=== PATIENT | female | born 2000 | race Caucasian/White ===

== ENCOUNTER 2023-04-21 09:17 | Emergency (ER) | payer MEDICAID, SELFPAY ==
[2023-04-21 09:19] VITALS: BP 100/71; PULSE 89; RESP 16; TEMP 36.7; O2SAT 100; BMI 18.2
--- NOTE | 2023-04-21 09:46 | W.ED.DENTAL ---
HPI - Dental/Oral General: Chief complaint: Dental/Oral Stated complaint: left side tooth pain Time Seen by Provider: 04/21/23 09:19 Source: patient Mode of arrival: ambulatory Limitations: no limitations History of Present Illness: 22-year-old female states she has been having left lower dental pain over the last 3 to 4 days. States pain sharp in nature rates it a 4 out of 10 she denies any Diffley swallowing denies any fever denies any trismus she has not seen a dentist. Associated symptoms: Denies fever(s) Review of Systems Const: Denies: fever(s), chills, body aches or change in appetite ENMT: Reports: mouth pain; Denies: throat pain or dental pain Card: Denies: chest pain Resp: Denies: dyspnea GI: Denies: abdominal pain, nausea, vomiting or diarrhea : Denies: dysuria Musc: Denies: neck pain or back pain Skin/Breast: Denies: rash Neuro: Denies: headache(s) Psych: Denies: depression Physical Exam Const: COMMON NORMALS: no acute distress, patient oriented x3 and healthy appearing HENMT: COMMON NORMALS: normocephalic and atraumatic HEAD & SCALP: normocephalic and atraumatic OTHER: Tenderness to left lower molar her wisdom tooth is also coming and partially erupted no abscess no trismus Eye: COMMON NORMALS: conjunctivae normal CONJUNCTIVA: Yes conjunctivae normal Neck/C-Spine: COMMON NORMALS: full ROM and supple Chest: COMMONS NORMALS: normal inspection of the chest Resp: COMMON NORMALS: normal respiratory effort GI: INSPECTION: Yes normal to inspection Extremity: COMMON NORMALS: normal to inspection and full ROM Neuro: COMMON NORMALS: patient oriented x3, moves all extremities and no focal motor deficits Psych: COMMON NORMALS: mental status grossly normal, Normal thought process present and cooperative THOUGHT PROCESS: Normal thought process present Skin: COMMON NORMALS: no rashes or lesions noted and no wounds GENERAL SKIN EXAM: no rashes or lesions noted Course Vital Signs: Vital signs: Vital Signs Temperature 98.0 F 04/21/23 09:19 Pulse Rate 89 04/21/23 09:19 Respiratory Rate 16 04/21/23 09:19 Blood Pressure 100/71 04/21/23 09:19 Pulse Oximetry 100 04/21/23 09:19 [facility] - Dental/Oral Medical Decision Making Patient presents here with dental pain she does have some tenderness left lower molar also has her wisdom tooth coming in we will place her on antibiotics along with Naprosyn and she is to follow-up with a dentist. Medical Records I reviewed the patient's medical records. No radiology studies performed this visit Discharge Plan Discharge Patient Disposition: Home Clinical Impression: Pain, dental Condition: Stable Prescriptions: New cephalexin 500 mg capsule 500 mg PO TID 7 Days Qty: 21 0RF Naprosyn 500 mg tablet 500 mg PO BID PRN (Reason: pain) Qty: 20 0RF Discharge Orders: Discharge ED (Routine); Ordered 04/21/23 Ordered By: Kash Quinonez Discharge Diet: Advance as tolerated Discharge Activity: Resume usual activity Patient Instructions: Toothache (ED) Coding Level of Care Code ED Supervisor [employer] for [place]
[2023-04-21] MEDS: HYDROcodone-acetaminophen 5-325 mg Tablet 1 TAB PO (10:03)
== END 2023-04-21 10:08 | disposition home or self-care (01) ==
PROVIDERS: Emergency Provider Emergency Medicine
DX: K08.89 Other specified disorders of teeth and supporting structures (principal)
CPT/HCPCS: 99283

== ENCOUNTER → 2023-10-27 11:29 | Outpatient (BNVA) | payer MEDICAID, SELFPAY | PROVIDERS: Visit Provider Nurse Practitioner | DX: R10.9 Unspecified abdominal pain (principal); R42 Dizziness and giddiness; R81 Glycosuria | CPT/HCPCS: 80053; 81000; 81025; 82962; 83036; 85025 ==

== ENCOUNTER → 2023-12-06 07:48 | Outpatient (BNVA) | payer MEDICAID, SELFPAY | PROVIDERS: Visit Provider Nurse Practitioner Women's Health | DX: O26.891 Other specified pregnancy related conditions, first trimester (principal); Z3A.08 8 weeks gestation of pregnancy | CPT/HCPCS: 76801 ==

== ENCOUNTER → 2023-12-24 08:38 | Outpatient (BNVA) | payer MEDICAID, SELFPAY | PROVIDERS: Visit Provider Nurse Practitioner Women's Health | DX: Z34.90 Encounter for supervision of normal pregnancy, unspecified, unspecified trimester (principal) | CPT/HCPCS: 80307; 81000; 85025; 86592; 86762; 86803; 86850; 86900; 87086; 87340; 87806 ==

== ENCOUNTER → 2024-01-14 09:30 | Outpatient (BNVA) | payer MEDICAID, SELFPAY | PROVIDERS: Visit Provider Obstetrics & Gynecology | DX: O98.411 Viral hepatitis complicating pregnancy, first trimester (principal); B19.10 Unspecified viral hepatitis B without hepatic coma; R76.8 Other specified abnormal immunological findings in serum; Z3A.00 Weeks of gestation of pregnancy not specified | CPT/HCPCS: 80076; 81000; 86705; 86706; 86707; 87340; 87491; 87591; 88175 ==

== ENCOUNTER → 2024-02-01 08:18 | Outpatient (BNVA) | payer MEDICAID, SELFPAY | PROVIDERS: Visit Provider Nurse Practitioner Women's Health | DX: O26.891 Other specified pregnancy related conditions, first trimester (principal); Z34.01 Encounter for supervision of normal first pregnancy, first trimester | CPT/HCPCS: 81000; 82105; 87517 ==

== ENCOUNTER → 2024-02-29 09:11 | Outpatient (BNVA) | payer MEDICAID, SELFPAY | PROVIDERS: Visit Provider Obstetrics & Gynecology | DX: O26.892 Other specified pregnancy related conditions, second trimester (principal); Z3A.20 20 weeks gestation of pregnancy | CPT/HCPCS: 76816 ==

== ENCOUNTER → 2024-03-28 08:17 | Outpatient (BNVA) | payer MEDICAID, SELFPAY | PROVIDERS: Visit Provider Nurse Practitioner Women's Health | DX: Z34.01 Encounter for supervision of normal first pregnancy, first trimester (principal) | CPT/HCPCS: 81000; 82950 ==

== ENCOUNTER → 2024-04-27 08:53 | Outpatient (BNVA) | payer MEDICAID, SELFPAY | PROVIDERS: Visit Provider Obstetrics & Gynecology | DX: Z34.01 Encounter for supervision of normal first pregnancy, first trimester (principal) | CPT/HCPCS: 84315; 85025 ==

== ENCOUNTER → 2024-05-11 08:15 | Outpatient (BNVA) | payer MEDICAID, SELFPAY | PROVIDERS: Visit Provider Nurse Practitioner Women's Health | DX: Z34.01 Encounter for supervision of normal first pregnancy, first trimester (principal) | CPT/HCPCS: 84315 ==

== ENCOUNTER → 2024-05-22 08:13 | Outpatient (BNVA) | payer MEDICAID, SELFPAY | PROVIDERS: Visit Provider Obstetrics & Gynecology | DX: O99.013 Anemia complicating pregnancy, third trimester (principal); Z3A.00 Weeks of gestation of pregnancy not specified | CPT/HCPCS: 84315 ==

== ENCOUNTER → 2024-06-06 08:21 | Outpatient (BNVA) | payer MEDICAID, SELFPAY | PROVIDERS: Visit Provider Nurse Practitioner Women's Health | DX: O26.893 Other specified pregnancy related conditions, third trimester (principal); Z3A.00 Weeks of gestation of pregnancy not specified | CPT/HCPCS: 84315; 85025 ==

== ENCOUNTER → 2024-06-19 08:32 | Outpatient (BNVA) | payer MEDICAID, SELFPAY | PROVIDERS: Visit Provider Obstetrics & Gynecology | DX: Z34.90 Encounter for supervision of normal pregnancy, unspecified, unspecified trimester (principal) | CPT/HCPCS: 84315; 87081 ==

== ENCOUNTER → 2024-06-26 08:59 | Outpatient (BNVA) | payer MEDICAID, SELFPAY | PROVIDERS: Visit Provider Obstetrics & Gynecology | DX: Z34.90 Encounter for supervision of normal pregnancy, unspecified, unspecified trimester (principal) | CPT/HCPCS: 84315 ==

== ENCOUNTER → 2024-07-03 08:16 | Outpatient (BNVA) | payer MEDICAID, SELFPAY | PROVIDERS: Visit Provider Obstetrics & Gynecology | DX: Z34.90 Encounter for supervision of normal pregnancy, unspecified, unspecified trimester (principal) | CPT/HCPCS: 84315 ==

== ENCOUNTER 2024-07-05 10:50 | Outpatient (CLI) | payer MEDICAID, SELFPAY ==
[2024-07-05 10:40] VITALS: BMI 23.0
[2024-07-05 11:09] VITALS: BP 120/79; PULSE 92
[2024-07-05 11:24] VITALS: BP 113/75; PULSE 93
[2024-07-05 11:40] VITALS: BP 108/69; PULSE 88
[2024-07-05 11:59] VITALS: BP 108/69; PULSE 88; RESP 16; O2SAT 98
== END 2024-07-05 11:59 | disposition home or self-care (01) ==
LOC: OPOB 10:51 → OBGYN 10:52
PROVIDERS: Visit Provider Obstetrics & Gynecology
DX: O46.90 Antepartum hemorrhage, unspecified, unspecified trimester (principal); Z3A.00 Weeks of gestation of pregnancy not specified
CPT/HCPCS: 59025; 99211

== ENCOUNTER 2024-07-05 17:19 | Inpatient (IN) | payer MEDICAID, SELFPAY ==
[2024-07-05] VITALS (22 sets, daily range): BP systolic 102–152; BP diastolic 52–82; PULSE 69–136; TEMP 36.6–36.7; BMI 23.3
[2024-07-05 18:14] LABS: Basophils % 0.3 %; Eosinophils % 0.2 %; Hematocrit 40.7 % (36-47); Lymphocytes # 1.9 10^3/uL (0.8-4.8); Lymphocytes % 12.8 %; Mean Corpuscular HGB Conc 33.7 g/dL (30-55); Mean Corpuscular Hemoglobin 28.8 pg (27-33); Mean Corpuscular Volume 85.7 fl (85-98); Mean Platelet Volume 12.1 fL (7.4-10.4); Monocytes # 0.7 10^3/uL (0.2-0.9); Monocytes % 4.9 %; Neutrophils # 11.71 10^3/uL (1.8-7.7); Neutrophils % 81.2 %; Nucleated Red Blood Cells % 0 %; Platelet Count 227 10^3/cmm (157-399); Red Blood Count 4.75 10^6/uL (3.85-5.65); Red Cell Distribution Width 14.3 % (12.1-15.1); White Blood Count 14.43 10^3/uL (3.29-11.43)
[2024-07-05] MEDS: lactated ringers 1,000 ML 999 ML IV (18:59)
--- NOTE | 2024-07-05 19:24 | PM.OPHPUD ---
Labor & Delivery H&P Update Date of Procedure: July 05, 2024 Date H&P Performed: 07/03/24 H&P update information: I have reviewed H&P completed within last 30 days, I have examined patient prior to procedure and Changes to prior documentation as noted here (2/75%/-3/VX/IM) Admission Diagnosis:
[2024-07-05] MEDS: dextrose 5%-lactated ringers 1,000 ML 125 ML IV (20:16)
--- NOTE | 2024-07-05 20:25 | P.PCNOB_ITS ---
Delivery Note: Date of delivery: July 05, 2024 Pre-delivery diagnoses: Term Post-delivery diagnoses: Term delivered Procedure: Spontaneous vaginal delivery Delivering Physician: Juan Jose Solis MD Estimated blood loss (mL): 300 Delivery: The patient was noted to be complete and pushing, so was placed in the dorsal lithotomy position, prepped and draped in the usual sterile fashion for a v aginal delivery. Pt. Noted to have epidural anesthesia. At 2009 the patient delivered a viable term male infant weighing 3572 g with scores of 8 and 9 at one and five minutes, respectively. The vertex was delivered spontaneously over intact perineum. The patient was asked to push and the head delivered spontaneously in the KIMBERLY position, over an intact perineum. A nuchal cord was checked and none noted. The anterior shoulder delivered easily and the posterior shoulder followed. The remainder of the infant was easily delivered and the oropharynx and nasopharynx was bulb suctioned. The infant was noted to have spontaneous cry and spontaneous movement of all four extremities. The cord was clamped x 2 and cut and noted to have 2 arteries and one vein. The was passed to the mother's abdomen where nursing personnel were in attendance. The placenta delivered intact spontaneously and the uterus was explored. 20 units of Pitocin was placed in the IV bag to firm the uterus. Examination of the cervix and vaginal vault did not reveal any lacerations. Examination of the perineum showed no lacerations. The patient tolerated this procedure well, and recovered in L&D with her infant in their LDR room. All sponge and needle counts were correct. Post-Delivery Status: Good and stable History History History 1 Term 0 Miscarriages/Ectopic Living Children A&P Assessment and plan (1) Term delivered: PDMP PDMP Reviewed: Not Reviewed Coding Level of Care Code Acute Code for Chg Fwd Diagnoses Term delivered O80
[2024-07-05] MEDS: ibuprofen 800 mg tablet PO (21:14)
[2024-07-06 00:10] VITALS: BP 113/63; PULSE 80; TEMP 36.6
[2024-07-06 01:10] VITALS: BP 120/74; PULSE 79; TEMP 36.6; TEMP 36.7
[2024-07-06 06:10] VITALS: BP 103/62; PULSE 94; RESP 16
[2024-07-06] MEDS: PRENATAL VIT NO.130/IRON/FOLIC 1 EACH TABLET PO (08:05)
[2024-07-06] MEDS: docusate sodium 100 mg Capsule PO (08:05)
[2024-07-06] MEDS: ibuprofen 800 mg tablet PO (08:05)
--- NOTE | 2024-07-06 09:37 | PC.NURSE ---
This nurse entered pt room at 0845 to draw hemagram. This RN explained procedure and answered pt questions. This nurse attempted to use patient IV to collect sample, IV flushed well but would not withdraw blood. Explained to patient that I would need to stick her for the sample. Pt refused at this time.
[2024-07-06 10:30] VITALS: BP 111/69; PULSE 88; RESP 16; TEMP 36.7; O2SAT 98
[2024-07-06 17:00] VITALS: BP 109/71; PULSE 87; RESP 16; TEMP 36.7; O2SAT 99
[2024-07-06 17:19] LABS: Mean Corpuscular HGB Conc 33.1 g/dL (30-55); Mean Corpuscular Hemoglobin 28.5 pg (27-33); Mean Platelet Volume 11.2 fL (7.4-10.4); Platelet Count 197 10^3/cmm (157-399); Red Blood Count 4.07 10^6/uL (3.85-5.65); Red Cell Distribution Width 14.6 % (12.1-15.1); White Blood Count 12.84 10^3/uL (3.29-11.43)
--- NOTE | 2024-07-06 17:25 | P.DS_ITS ---
Discharge Providers [facility]SE [facility]FF [facility] Date of Admission: 07/05/24 17:19 Date of Discharge: 07/06/24 Attending Provider at Admission: JuanJ ose Solis MD Attending Provider at Discharge: Juan Jose Solis MD Primary N[facility]SE [facility]FF [facility]: Juan Jose Solis MD Diagnoses at Discharge Discharge Diagnosis (1) Term delivered: Status: Acute Reason for Visit Reason for Visit: ctx Hospital Course Hospital Course Ms. Mullins 23-year-old female at term. Admitted to labor and delivery in active labor. She progressed to have a spontaneous vaginal delivery without complications. observation has been uneventful. She is afebrile hemodynamically stable. Tolerating diet well. Ambulating without difficulty. She was counseled regarding pelvic rest for 6 weeks (no sex, no tampons, no vaginal douches). Return to the emergency room if any fever, increased bleeding or pain. Information Peripartum Data: Delivery Method: Vaginal Physical Exam Narrative: GA; alert and oriented x 3 HEENT: normal Breasts: engorged Nipples - skin intact Lungs; clear to auscultation Heart: regular rhythm, no murmurs. Abd: Appropriately tender. BS+. Uterine fundus below umbilicus. No Fundal Tenderness. Perineum: normal lochia. Extremities: no edema, no cyanosis, no tenderness. History History History 1 Term 0 Miscarriages/Ectopic Living Children Discharge Data Studies Completed and Pending Laboratory Results WBC 12.84 10^3/uL (3.29-11.43) H 07/06/24 17:10 RBC 4.07 10^6/uL (3.85-5.65) 07/06/24 17:10 Hgb 11.60 g/dL (11.27-16.99) 07/06/24 17:10 Hct 35.0 % (36-47) L 07/06/24 17:10 MCV 86.0 fl (85-98) 07/06/24 17:10 MCH 28.5 pg (27-33) 07/06/24 17:10 MCHC 33.1 g/dL (30-55) 07/06/24 17:10 RDW 14.6 % (12.1-15.1) 07/06/24 17:10 Plt Count 197 10^3/cmm (157-399) 07/06/24 17:10 MPV 11.2 fL (7.4-10.4) H 07/06/24 17:10 Neut % (Auto) 81.2 % 07/05/24 17:12 Lymph % (Auto) 12.8 % 07/05/24 17:12 Kinney % (Auto) 4.9 % 07/05/24 17:12 Eos % (Auto) 0.2 % 07/05/24 17:12 Baso % (Auto) 0.3 % 07/05/24 17:12 Neut # (Auto) 11.71 10^3/uL (1.8-7.7) H 07/05/24 17:12 Lymph # (Auto) 1.9 10^3/uL (0.8-4.8) 07/05/24 17:12 Kinney # (Auto) 0.7 10^3/uL (0.2-0.9) 07/05/24 17:12 Eos # (Auto) 0.0 10^3/uL (0.0-0.8) 07/05/24 17:12 Baso # (Auto) 0.0 10^3/uL (0.0-0.1) 07/05/24 17:12 Nucleated RBC % (auto) 0 % 07/05/24 17:12 Nucleated RBCs # 0.0 /100WBC 07/05/24 17:12 Blood Type A Positive 07/05/24 22:10 Rho(D) Type Rh positive 07/05/24 22:10 Antibody Screen Negative 07/05/24 22:10 Vitals Last Vital Signs Temp 98.0 F 07/06/24 10:30 Pulse 88 07/06/24 10:30 Resp 16 07/06/24 10:30 BP 111/69 07/06/24 10:30 Pulse Ox 98 07/06/24 10:30 O2 Del Method Room Air 07/06/24 10:30 Results Labs OB ([facility]): Obstetrics US 02/29/24 Blood Type A Positive 07/05/24 Antibody Screen Negative 07/05/24 Hct 35.0 % (36-47) L 07/06/24 Hgb 11.60 g/dL (11.27-16.99) 07/06/24 Rho(D) Type Rh positive 07/05/24 Plt Count 197 10^3/cmm (157-399) 07/06/24 Hep Bs Antigen Non-reactive (Nonreactive) 01/14/24 Hep Bs Ag Confirmation Not Reportable 12/24/23 Hep B Core Total Ab Non-reactive (Nonreactive) 01/14/24 Hep Bs Antibody 46.6 (11.5-1000) 01/14/24 Hepatitis C Antibody Non-reactive (Nonreactive) 12/24/23 Rubella IgG Antibody 18.4 IU/mL (0.0-10.0) H 12/24/23 RPR Nonreactive (Nonreactive) 12/24/23 HIV 1&2 Ab & HIV 1 Ag Non-reactive (Non-Reactiv) 12/24/23 TSH 1.38 uIU/mL (0.27-4.20) 11/24/23 C.trachomatis RNA (TMA) Not detected (NOT DETECTED) N.gonorrhoeae RNA (TMA) Not detected (NOT DETECTED) T. vaginalis Amp RNA Not detected (NOT DETECTED) 01/14/24 Chlamydia/GC Comment See note 01/14/24 Cystic Fibrosis Screen Polycystic kd 12/24/23 Glucose 1 Hr 50 gm 84 mg/dL (85-140) L 03/28/24 Hemoglobin A1c 4.9 % (4.0-6.0) 11/24/23 Ser , Semi-Qnt 78217.00 mIU/mL 11/24/23 HCG, Qual Positive (Negative) H 11/24/23 Urine Opiates Screen Negative ng/mL (Negative) 12/24/23 Ur Barbiturates Screen Negative ng/mL (Negative) 12/24/23 Ur Phencyclidine Scrn Negative ng/mL (Negative) 12/24/23 Ur Amphetamines Screen Negative ng/mL (Negative) 12/24/23 U Benzodiazepines Scrn Negative ng/mL (Negative) 12/24/23 Urine Cocaine Screen Negative ng/mL (Negative) 12/24/23 U Marijuana (THC) Screen Negative ng/mL (Negative) 12/24/23 Micro Urine Specimen 12/24/23 Pap Smear Interpret See note 01/14/24 Discharge Plan Discharge Patient Disposition: Home Condition: Stable Prescriptions: New ibuprofen 800 mg tablet 800 mg PO TID PRN (Reason: pain) Qty: 60 0RF acetaminophen 325 mg capsule 325 mg PO Q4H PRN (Reason: fever or pain) Qty: 60 0RF docusate sodium [Colace] 100 mg capsule 100 mg PO BID Qty: 60 0RF Continued ferrous sulfate 325 mg (65 mg iron) tablet 325 mg PO BID Qty: 60 3RF folic acid 0.8 mg capsule 0.8 mg PO DAILY Fish Oil 100-160-1,000 mg capsule 1 cap PO DAILY Classic 28 mg iron- 800 mcg tablet 1 tab PO DAILY Discharge Orders: Discharge Order (Routine); Ordered 07/06/24 Ordered By: Juan Jose Solis Referrals: Cynthia Winters APN, CELIA [Nurse Practitioner] - 08/23/24 9:45 am Discharge Diet: Usual diet Discharge Activity: Limit activity as instructed Patient Instructions: Depression (DC), Opioid Safety (DC), Preeclampsia and Eclampsia After Delivery (GEN), Hemorrhage (DC), OB Discharge Report, OB Food/Drug Interaction Guide, Opioid Safety, OB Home Care, OB Vaginal Deliveries - [facility], Abnormal Bleeding Activity Restrictions/Additional Instructions: 1. Please call [facility] on next working day to make your appointment in 6 weeks. 2. Please stay home until you come back to the clinic on first post- hospatilization check up. 3. Please follow instructions on your medications CAREFULLY. 4. If you have abdominal incision, do not cover it unless dressing is necessary because of drainage. OK to shower, but avoid bath. Leave steri-strips until they fall off. If they are still on one week after surgery, you may remove them. 5. If you had vaginal surgery or vaginal repair, Dr. Solis may instruct you to take SITZ bath. 6. Yellow, blood tinged odorous vaginal discharge is usually normal after hysterectomy or vaginal surgeries. 7. No SEXUAL INTERCOURSE, tampons, or douches until you are completely released from the post-operative care. 8. Avoid constipation by eating right and maybe using some Metamucil or Milk of Magnesia. 9. All prescription refills are given during the working hours. Please do no wait till it runs out. Call the clinic at [phone] before your medication runs out. The clinic will get in touch with your doctor to prescribe medications if necessary. 10. Please remain within 40 mile radius from our hospital because emergencies do happen now and then during the post-operative period. 11. If you have stairs at home, take one step at a time slowly and minimize the number of trips. It helps to stay in one floor for the next few days. No lifting except what you can lift by one hand until you are released from the post-operative care. 12. Driving is discouraged until you are well healed. It may be 3-4 weeks before you feel strong enough to drive. You should be able to turn and look through the rear window without pain and you should be able to push the brake pedal very hard without pain before you drive. No fast rules, but SAFETY should be your primary concern. DO NOT drive if you are on sedating medications such as narcotics. 13. Call the clinic (during working hours) to make urgent appointment or go to the Emergency room, if any of the following occurs: i. Vaginal bleeding becomes heavy, more than a period. ii. Incision becomes red and sore, or drains pus. iii. Your TEMPERATURE is over 100.4F or you have chill. iv. IV site becomes red and swollen (a little ``knot?? is usually OK) v. Persistent nausea and vomiting vi. Persistent constipation or diarrhea vii. Rash or allergic reaction to medications. Discharge Attestations N[facility] Time Spent in Discharge Care*: greater than 30 min Coding Level of Care Code Acute Code for Chg Fwd Diagnoses Term delivered O80
[2024-07-06 22:00] VITALS: BP 118/80; PULSE 108; RESP 15; TEMP 36.8; O2SAT 96
== END 2024-07-06 22:25 | disposition home or self-care (01) | DRG 807 ==
LOC: OPOB 17:20 → OBGYN 17:20
PROVIDERS: Admitting Provider Obstetrics & Gynecology; Visit Provider Obstetrics & Gynecology
DX: O99.02 Anemia complicating childbirth (principal); Z37.0 Single live birth; D64.9 Anemia, unspecified; Z3A.38 38 weeks gestation of pregnancy
CPT/HCPCS: 36415; 59025; 59409; 83986; 85025; 85027; 86850; 86900; 99211; J7120; J7121

== ENCOUNTER 2024-11-02 09:38 | Outpatient (CLI) | payer MEDICAID, SELFPAY ==
--- NOTE | 2024-11-02 09:42 | XR_ITS ---
WS: [id number] Exam: XR KUB [id number] Date/Time of Exam: 11/02/2024 9:42 AM Reason For Exam: abd pain No bowel obstruction or free air. Moderate amount retained stool in the colon. No sign of organ enlargement. Moderate thoracolumbar levoscoliosis. There are numerous amorphous calcifications in the RIGHT and LEFT upper abdomen that probably represent costochondral calcifications. XR/XR KUB [id number] IMPRESSION: 1. Constipation. No acute abdominal process. 2. Moderate thoracolumbar levoscoliosis. 3. Scattered amorphous calcifications in the RIGHT and LEFT abdomen that are pr obably costochondral calcifications.
== END 2024-11-02 09:39 | disposition home or self-care (01) ==
LOC: RAD 09:39
DX: R10.9 Unspecified abdominal pain (principal)
CPT/HCPCS: 74018; 80053; 81000; 81025; 84443; 85025; 87086

== ENCOUNTER 2024-11-13 07:56 | Outpatient (CLI) | payer MEDICAID, SELFPAY ==
--- NOTE | 2024-11-13 07:45 | USR_ITS ---
PROCEDURE INFORMATION: Exam: US Abdomen Complete Exam date and time: 11/13/2024 8:09 AM Age: 24 years old Clinical indication: Abdominal pain; Generalized; Additional info: Abdominal pain. Possible ingunal hernia TECHNIQUE: Imaging protocol: Real-time ultrasound of the abdomen with image documentation. Complete exam. COMPARISON: [place] [id number] 02/29/2024 9:20 AM FINDINGS: Liver: Normal. No mass. Gallbladder: Normal. No gallstones. There is no gallbladder wall thickening. Biliary ducts: Normal. No stones. No dilation. Pancreas: Visualized pancreas is unremarkable. Right kidney: Normal. No mass. No hydronephrosis. Left kidney: Normal. No mass. No hydronephrosis. Spleen: Normal. No splenomegaly. Aorta: Normal. No aneurysm. Inferior vena cava: Normal. Other findings: Of note, evaluation of the inguinal canals was not performed on this study. US/US abdomen complete* [id number] IMPRESSION: No acute findings.
== END 2024-11-13 07:57 | disposition home or self-care (01) ==
LOC: RAD 07:57
DX: R10.9 Unspecified abdominal pain (principal)
CPT/HCPCS: 76700